=== PATIENT | female | born 1965 | race Two or more races ===

== ENCOUNTER 2020-03-13 04:43 | Emergency (ER) | payer OTHER ==
[~2020-03-13] VITALS: Ht 152.4 cm; Wt 58.1 kg
[2020-03-13] MEDS ORDERED: ZETIA10 MG (05:01)
[2020-03-13] MEDS ORDERED: CARAFATE1 GM/10 ML PO (06:10)
== END 2020-03-13 06:17 | disposition home or self-care (01) ==
LOC: ER 04:43
DX: K21.9 Gastro-esophageal reflux disease without esophagitis (principal)

== ENCOUNTER 2020-07-22 07:28 | Outpatient (CLI) | payer OTHER ==
[~2020-07-22 07:28] MED LIST: CARAFATE1 GM/10 ML PO; ZETIA10 MG
== END 2020-07-22 07:38 | disposition home or self-care (01) ==
LOC: SONOGRAMA 07:28
PROVIDERS: ATTEND Urology
DX: R31.21 Asymptomatic microscopic hematuria (principal)

== ENCOUNTER 2024-09-10 10:50 | Emergency (ER) | payer OTHER ==
[~2024-09-10] VITALS: Ht 152.4 cm; Wt 56.7 kg
[2024-09-10 11:09] VITALS: BP 130/80; O2SAT 100
[2024-09-10] MEDS ORDERED: FAMOTIDINE40 MG PO (11:12)
[2024-09-10] MEDS ORDERED: CYCLOBENZAPRINE HCL 5 MG TABLET PO ONE (12:45)
[2024-09-10] MEDS ORDERED: CYCLOBENZAPRINE5 MG PO (14:44)
== END 2024-09-10 14:49 | disposition home or self-care (01) ==
LOC: ER 10:52
DX: M79.606 Pain in leg, unspecified (principal); I10 Essential (primary) hypertension; Z88.1 Allergy status to other antibiotic agents